=== PATIENT | female | born 1965 | race Caucasian/White ===

== ENCOUNTER 2016-12-15 08:25 | Day surgery (SDC) | payer OTHER ==
[2016-12-13 07:48] VITALS: BMI 35.5
[2016-12-15] MEDS ORDERED: Midazolam 2 MG/2 ML VIAL ONE (09:59)
[2016-12-15] MEDS ORDERED: Lactated Ringer's 1,000 ML IV ONE (10:00)
[2016-12-15] MEDS ORDERED: Propofol 10 mg/ml Inj (20 ML) ONE (10:00)
--- NOTE | 2016-12-15 10:40 | PCM.SURG1 ---
Surgeon's Initial Post Op Note - Surgeon's Notes Surgeon: Fallon Pillai MD Chrome Cleaner: Lizeth Simpson DO Type of Anesthesia: General Endo Pre-Operative Diagnosis: Abnormal uterien bleeding Operative Findings: 8 week sizse uteurs, bilateral ostia visualized, no adnexla masses, polypoid tissue noted within cavity in close proximtity to left cornua. Post-Operative Diagnosis: same as above Operation Performed: Operative hysteroscopy fractional dilation and currettage Specimen/Specimens Removed: endocervical currettings, endometrial currettings, endometrial polyp Estimated Blood Loss: EBL {In ML}: 10 Blood Products Given: N/A Drains Used: No Drains Post-Op Condition: Good Date of Surgery/Procedure: 12/15/16 Time of Surgery/Procedure: 10:00
[2016-12-15 11:55] VITALS: O2SAT 95
[2016-12-15 12:17] VITALS: BP 108/62; PULSE 57; RESP 16; TEMP 97.6
--- NOTE | 2016-12-15 21:38 | OP ---
PROCEDURE DATE: 12/15/2016 PREOPERATIVE DIAGNOSIS: Abnormal uterine bleeding. POSTOPERATIVE DIAGNOSIS: Abnormal uterine bleeding. OPERATION PERFORMED: Operative hysteroscopy and fractional dilatation and curettage. SURGEON: Fallon Pillai MD DIGITAL CONTENT COORDINATOR: TYPE OF ANESTHESIA: General endotracheal. SPECIMEN: Endocervical curettings, endometrial curettings, and endometrial polyp. ESTIMATED BLOOD LOSS: 10 mL. BLOOD PRODUCTS: None. COMPLICATIONS: None. OPERATIVE FINDINGS: An 8 week sized uterus, bilateral ostia visualized, no adnexal masses, polypoid tissue noted within the cavity in close proximity to the left cornea. DESCRIPTION OF PROCEDURE: The patient was taken to the operating room where she was given general anesthesia. Once found to be adequate, she was placed on the operating table in dorsal lithotomy position with legs supported using stirrups. The patient was then prepped and draped in the usual sterile fashion. Time-out was performed; correct patient and procedure. Bimanual exam was performed with the above mentioned findings. The red rubber catheter was inserted into the urethra to drain the bladder and 30 mL of clear yellow urine was obtained. Manley retractor was placed in the anterior and posterior fornix of the vagina. The cervix was adequately visualized. A single tooth tenaculum was placed on the anterior lip of the cervix and endocervical curettings were obtained with a Palma curette and sent to pathology on [facility]. The uterus was then sounded to 2.5 cm. Following this, the cervix was sequentially dilated with a Sebas dilator to allow for introduction of the hysteroscope under direct visualization using normal saline as the distention media. Upon visualization, bilateral ostia were visualized with polypoid tissue noted in the cavity in close proximity to the left cornea. A MyoSure device was then inserted under direct visualization and then the mass was then resected. Following this, the hysteroscope was then removed and then gentle curettage was done 360 degrees until gritty texture was noted. All instruments were removed. There was good hemostasis at the tenaculum puncture site. At the end of the procedure, all needle, sponge, and instrument counts were noted to be correct The patient tolerated the procedure well and was transferred to the recovery room in stable condition. Fallon Pillai MD [facility] # [id number]
== END 2016-12-15 12:08 | disposition home or self-care (01) ==
LOC: C.SDS 08:25
PROVIDERS: ATTEND Obstetrics & Gynecology
DX: N84.0 Polyp of corpus uteri (principal); N76.1 Subacute and chronic vaginitis
CPT/HCPCS: 58558; 88305; J1100; J1885; J2001; J2250; J2270; J2405; J2704; J3010; J7120